=== PATIENT | female | born 1975 | race Two or more races ===

== ENCOUNTER 2019-11-30 07:59 | Emergency (ER) | payer MEDICAID ==
[~2019-11-30] VITALS: Ht 149.9 cm; Wt 59.0 kg
[2019-11-30 10:34] LABS: BASOPHILS % 0.6 % (0.0-2.0); EOSINOPHILS % 1.1 % (0.0-5.0); HEMATOCRIT. 39.8 % (36.0-48.0); HEMOGLOBIN. 13.2 g/dL (12.0-16.0); LYMPHOCYTES % 14.8 % (20.0-50.0); MEAN CORPUSCULAR HEMOGLOBIN 29.6 pg (28.0-32.0); MEAN CORPUSCULAR VOLUME 88.7 fL (81.0-99.0); MEAN PLATELET VOLUME 7.8 fl (7.4-10.4); NEUTROPHILS % 78.5 % (40.0-76.0); PLATELET 281 x1000/uL (130-400); RED BLOOD CELL COUNT 4.48 mill/uL (4.2-5.4); RED CELL DISTRIBUTION WIDTH 13.2 % (11.6-14.6)
[2019-11-30 10:40] LABS: CHLORIDE 105 mEq/L (98-107)
[2019-11-30 11:04] LABS: B-HCG QUANTITATIVE 3043 mIU/mL (<3)
[2019-11-30 11:55] VITALS: BP 123/61
== END 2019-11-30 12:00 | disposition home or self-care (01) ==
LOC: ER 07:59
DX: O02.1 Missed abortion (principal); O26.899 Other specified pregnancy related conditions, unspecified trimester; E78.00 Pure hypercholesterolemia, unspecified; Z3A.00 Weeks of gestation of pregnancy not specified
CPT/HCPCS: 36415; 76801; 80053; 84702; 85025; 86850; 86900; 99284